=== PATIENT | female | born 1980 | race Two or more races ===

== ENCOUNTER 2017-03-02 15:14 | Emergency (ER) | payer BC, OTHER ==
[~2017-03-02] VITALS: Ht 154.9 cm; Wt 56.2 kg
[2017-03-02 16:12] LABS: Basophils # (auto) 0.1 uL; Basophils % (auto) 0.8 % (0.0-2.0); Eosinophils # (auto) 0 uL; Eosinophils % (auto) 0.5 % (0.0-7.0); Hematocrit 35.4 % (36.0-46.0); Lymphocytes % (auto) 14.3 % (10.0-50.0); Mean Corpuscular Volume 91.4 fL (80.0-100.0); Mean Platelet Volume 9.5 fL (6.9-10.8); Monocytes # (auto) 0.3 uL; Neutrophils # (auto) 5.4 uL; Neutrophils % (auto) 79.4 % (37.0-80.0); Nucleated Red Blood Cells % 0.1 %; Platelet Count (auto) 189 10^3/uL (140-450); Red Cell Distribution Width 13.3 % (11.8-14.3); White Blood Cell 6.8 10^3/uL (4.4-10.8)
[2017-03-02 16:27] LABS: Urine Bilirubin Negative (Negative); Urine Blood TRACE /uL (Negative); Urine Color Yellow (Yellow); Urine Glucose Normal (Normal); Urine Ketone 2+ (Negative); Urine Mucus FEW (None Seen); Urine Nitrite POSITIVE (Negative); Urine RBC 4 /hpf (0 - 4); Urine Squamous Epithelial Cell FEW /hpf (<5); Urine Urobilinogen Normal (Negative)
[2017-03-02 16:34] LABS: Albumin 3.8 g/dL (3.4-5.0); BUN/Creatinine Ratio 11.1; Bilirubin, Total 1.4 mg/dL (0.2-1.0); Calcium 8.4 mg/dL (8.5-10.1); Potassium 3.3 mmol/L (3.5-5.1); Total Protein 7.7 g/dL (6.4-8.2)
[2017-03-02 23:04] LABS: Amylase 67 U/L (25-115)
[2017-03-02] MEDS ORDERED: ALUM & MAG HYDROX-SIMETH LIQ(MAALOX) 30 ML PO ONE (23:45)
[2017-03-02] MEDS ORDERED: LIDOCAINE VISCOUS 2% 15ML UD PO ONE (23:45)
[2017-03-03 06:01] VITALS: BP 109/62
== END 2017-03-03 06:24 | disposition home or self-care (01) ==
LOC: ER 15:24
DX: N39.0 Urinary tract infection, site not specified (principal); K59.00 Constipation, unspecified; K80.50 Calculus of bile duct without cholangitis or cholecystitis without obstruction
CPT/HCPCS: 36415; 74176; 80053; 81001; 82150; 83690; 84702; 85025